=== PATIENT | female | born 1990 | race African-American/Black ===

== ENCOUNTER 2024-08-05 09:25 | Emergency (ER) | payer SELFPAY ==
[2024-08-05] MEDS ORDERED: Ketorolac Tromethamine 30 MG (1 mL) VIAL ONE (09:56)
[2024-08-05] MEDS ORDERED: diphenhydrAMINE 50 MG/ML VIAL ONE (09:56)
[2024-08-05] MEDS ORDERED: Metoclopramide HCl 10 MG (2 mL) VIAL ONE (09:56)
[2024-08-05] MEDS ORDERED: Sodium Chloride 0.9% 1,000 ML ONE (09:56)
[2024-08-05 10:34] LABS: BHCG - Serum Negative (NEGATIVE); Pregs Control Background? CLEAR/WHITE (CLR/WHITE); Pregs Control Bar Appear? YES (CONTROL BAR)
== END 2024-08-05 12:10 | disposition home or self-care (01) ==
LOC: MADERS 09:25
DX: G43.909 Migraine, unspecified, not intractable, without status migrainosus (principal); E11.9 Type 2 diabetes mellitus without complications
CPT/HCPCS: 36415; 84703; 96374; 96375; J1200; J1885; J2765; J7030